=== PATIENT | female | born 1985 | race American Indian/Alaskan Native ===

== ENCOUNTER 2016-08-18 03:32 | Emergency (ER) | payer OTHER ==
[2016-08-18 03:42] VITALS: BP 139/84
[2016-08-18 04:16] LABS: Basophils % (Auto) 0.2 % (0.0-1.8); Eosinophils % (Auto) 0.9 % (0.0-4.3); Hematocrit 41.2 % (30.3-42.9); Hemoglobin 13.7 gm/dl (10.1-14.3); Mean Corpuscular HGB Conc 33 % (30-34); Mean Corpuscular Hemoglobin 29 pg (28-32); Mean Corpuscular Volume 87 fl (79-97); Platelet Count 277 K/mm3 (140-440); Red Blood Count 4.73 M/mm3 (3.65-5.03); Red Cell Distribution Width 13.4 % (13.2-15.2); White Blood Count 9.3 K/mm3 (4.5-11.0)
[2016-08-18 05:26] LABS: Albumin/Globulin Ratio 1.1 %; Alkaline Phosphatase 82 units/L (35-129); BUN/Creatinine Ratio 21.66; Blood Urea Nitrogen 13 mg/dL (7-17); Carbon Dioxide 20 mmol/L (22-30); Chloride 101.9 mmol/L (98-107); Glucose 92 mg/dL (65-100); Lipase 16 units/L (13-60); Sodium 137 mmol/L (137-145); Total Protein 7.5 g/dL (6.3-8.2)
[2016-08-18 05:28] LABS: Alanine Aminotransferase 13 units/L (7-56); Anion Gap 20 mmol/L; Potassium 4.6 mmol/L (3.6-5.0)
== END 2016-08-18 06:15 | disposition left against medical advice (07) ==
LOC: ED 03:32
DX: R30.0 Dysuria (principal); Z53.21 Procedure and treatment not carried out due to patient leaving prior to being seen by health care provider
CPT/HCPCS: 36415; 80053; 83690; 85025